=== PATIENT | male | born 1990 ===

== ENCOUNTER 2018-03-12 10:53 | Emergency (ER) | payer MEDICAID, OTHER ==
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
[2018-03-12 12:01] VITALS: BP 149/76; PULSE 62; RESP 18; TEMP 98.3; O2SAT 99
--- NOTE | 2018-03-12 12:01 | RAD ---
PROCEDURE: Radiographs of the right elbow. HISTORY: injury COMPARISON: No prior. FINDINGS: BONES: Nondisplaced radial head fracture. JOINTS: Unremarkable. SOFT TISSUES: Normal. JOINT EFFUSION: Anterior and posterior joint effusion. OTHER FINDINGS: None. IMPRESSION: Nondisplaced radial head fracture.
== END 2018-03-12 12:04 | disposition home or self-care (01) ==
LOC: C.ER 10:53
DX: S52.124A Nondisplaced fracture of head of right radius, initial encounter for closed fracture (principal); V18.4XXA Pedal cycle driver injured in noncollision transport accident in traffic accident, initial encounter; Y92.89 Other specified places as the place of occurrence of the external cause